=== PATIENT | female | born 1955 | race Caucasian/White ===

== ENCOUNTER 2023-06-06 07:30 | Day surgery (SDC) | payer OTHER, SELFPAY ==
--- NOTE | 2023-06-06 | PATH_ITS ---
[facility] Accession Number: [id number] No. of containers..01 Tissue . 01 Material submitted: . colon - RANDOM COLON . 01 Diagnosis: Random Colon, Biopsy: Colonic mucosa with no diagnostic abnormality. Negative for active, chronic, and microscopic colitis. Negative for dysplasia and malignancy. . V 06/11/2023 1526 Local . 01 Electronically signed: . Sandro Parry MD, PhD, Pathologist NPI- [id number] . 01 Gross description: . RANDOM COLON: Received in formalin are multiple fragment(s) of dickson, soft tissue measuring 0.1 x 0.1 x 0.1 cm to 0.4 x 0.2 x 0.2 cm submitted entirely in 1 cassette(s) /LEANNA 06/07/[id number] Local . 01 Pathologist provided ICD-10: R19.4, Z86.010 . 01 CPT . 195239 Specimen Comment: A courtesy copy of this report has been sent to [phone] Performed at: 01 [facility] [address] [place] [address], [place], [place] [id number] MD Dhruv Contreras MD Phone: [phone]
[2023-06-06 08:45] VITALS: BP 128/86; PULSE 87; RESP 16; TEMP 36.7; O2SAT 96
--- NOTE | 2023-06-06 08:47 | PM.HP.1 ---
History of Present Illness History of Present Illness Date Patient Seen: 06/06/23 Chief complaint: Dx Colonoscopy Narrative: History of colon polyps [facility] Medical History (Updated 06/06/23 @ 08:30 by Onelia Zhou, RN) Breast CA IBS (irritable bowel syndrome) Surgical History (Updated 06/06/23 @ 08:31 by Onelia Zhou RN) History of pubovaginal sling (~1995) H/O bilateral mastectomy (~1999) Social History Smoking Status: Never smoker alcohol intake: current Meds Home Medications and Allergies Home Medications Medication Instructions Recorded Confirmed Type calcium carbonate 200 mg calcium 200 mg PO DAILY 06/06/23 06/06/23 History (500 mg) chewable tablet (Tums) cholecalciferol (vitamin D3) 25 25 mcg PO DAILY 06/06/23 06/06/23 History mcg (1,000 unit) capsule (Vitamin D3) doxylamine succinate 5 mg chewable 5 mg PO DAILY 06/06/23 06/06/23 History tablet ibuprofen 800 mg tablet 800 mg PO TID PRN Pain, Moderate 06/06/23 06/06/23 History zolpidem 5 mg tablet 2.5 mg PO BEDTIME PRN Insomnia 06/06/23 06/06/23 History Allergies Allergy/AdvReac Type Severity Reaction Status Date / Time Iodinated Contrast Media Allergy Intermediate Hives Verified 06/06/23 08:20 iodine Allergy Intermediate Hives Verified 06/06/23 08:20 Exam Narrative Exam Narrative: Oropharynx free of lesions Chest clear to auscultation percussion Cardiac exam reveals no S3 or murmur Assessment & Plan Assessment & Plan narrative: History of colon polyps need for follow-up colonoscopy. Risks, benefits, alternatives have been explained. She has been having some stools that are predominantly diarrheal. If no colitis seen random biopsies will be taken to rule out microscopic colitis.
[2023-06-06] MEDS: LACTATED RINGERS 1,000 ML 42 ML IV (08:55)
--- NOTE | 2023-06-06 09:16 | PM.OP.COLON ---
Operative Date/Time/Diagnoses Date of procedure: 06/06/23 Pre-op diagnosis: See indication and findings Procedure & Clinicians Study performed: Colonoscopy Indications: History of colon polyps. Also history of loose stools Surgeon: Venancio Steen Procedure Notes Procedure in detail: After informed consent was obtained the patient was placed in left lateral decubitus position. The video colonoscope was introduced in the rectum slowly advanced cecum. Preparation was good. On slow withdrawal mucosa was carefully examined. The scope was removed. The patient tolerated procedure well. Blood loss none Complications none Sedation mac Findings 1. Normal colonoscopy to cecum other than rare scattered diverticulosis in the sigmoid colon 2. Random biopsies taken to rule out microscopic colitis 3. Otherwise negative colonoscopy to cecum Candelaria should have follow-up colonoscopy in 7 years.
[2023-06-06 09:45] VITALS: BP 112/73; PULSE 85; RESP 15; TEMP 37; O2SAT 97
[2023-06-06 09:50] VITALS: BP 118/76; PULSE 74; RESP 14; TEMP 36.9; O2SAT 96
[2023-06-06 09:54] VITALS: BP 115/75; PULSE 71; RESP 15; O2SAT 98
== END 2023-06-06 10:08 | disposition home or self-care (01) ==
PROVIDERS: PCP Internal Medicine; Referring Provider Internal Medicine Gastroenterology; Visit Provider Internal Medicine Gastroenterology
PROC: 0DJD8ZZ Inspection of Lower Intestinal Tract, Via Natural or Artificial Opening Endoscopic (ICD-10-PCS; CPT 45378; principal; 2023-06-06 09:00)
DX: Z12.11 Encounter for screening for malignant neoplasm of colon (principal); K57.30 Diverticulosis of large intestine without perforation or abscess without bleeding; Z86.010 Personal history of colon polyps
CPT/HCPCS: 45380; J3010

== ENCOUNTER → 2023-08-10 08:47 | Outpatient (CLI) | payer MEDICARE, SELFPAY ==
--- NOTE | 2023-08-10 08:51 | DI.RAD.S_ITS ---
PROCEDURE: XR CHEST 2V INDICATIONS: SHORTNESS OF BREATH TECHNIQUE: 2 views of the chest were acquired. COMPARISON: None. FINDINGS: Surgical changes and devices: Left axillary clips. Lungs and pleura: Lungs are clear. No pleural effusions or pneumothorax. Mediastinum: Mediastinal contours are normal. Heart size is normal. Bones and chest wall: No suspicious bony abnormalities. Soft tissues appear unremarkable. IMPRESSION: No acute cardiopulmonary abnormality is seen. Dictated by: Grupo Rinaldi M.D. on 08/10/2023 at 12:36 Approved by: Grupo Rinaldi M.D. on 08/10/2023 at 12:37
== END ==
PROVIDERS: PCP Internal Medicine; Referring Provider Physician Assistant; Visit Provider Physician Assistant
DX: R53.83 Other fatigue (principal); R50.9 Fever, unspecified
CPT/HCPCS: 71046

== ENCOUNTER → 2023-08-10 09:56 | Outpatient (CLI) | payer MEDICARE, SELFPAY ==
[2023-08-10 11:29] LABS: Alanine Aminotransferase 51 IU/L (<35); Albumin 3.7 g/dL (3.5-5.0); Albumin Globulin Ratio 1.1 (1.0-2.8); Alkaline Phosphatase 67 U/L (38-126); Aspartate Aminotransferase 41 IU/L (14-36); BUN Creatinine Ratio 17.5 (6-22); Bilirubin Total 0.7 mg/dL (0.2-1.3); Blood Urea Nitrogen 11 mg/dL (7-17); C-Reactive Protein Quant 1.4 mg/dL (<1.0); Calcium 9.3 mg/dL (8.4-10.2); Carbon Dioxide 29 mmol/L (22-32); Chloride 103 mmol/L (98-107); Estimated Glomerular Filt Rate > 60 mL/min (>60); Globulin 3.5 g/dL (1.7-4.1); Glucose 106 mg/dL (80-110); HEMOLYSIS < 15 (0-50); Potassium 4.6 mmol/L (3.4-5.1); Sodium 133 mmol/L (137-145); Total Protein 7.2 g/dL (6.3-8.2)
[2023-08-10 12:07] LABS: Hematocrit 36.6 % (36-46); Hemoglobin 12.4 g/dL (12.0-16.0); Mean Corpuscular Hemoglobin 30.1 PG (26-34); Mean Corpuscular Volume 88.6 fL (80-100); Platelet Count 305 X10^3/uL (150-400); Red Blood Cell Count 4.13 X10^6/uL (4.0-5.2); Red Cell Distribution Width 13.9 % (11.6-14.8); White Blood Cell Count 8.5 X10^3/uL (4.5-11.0)
[2023-08-10 12:09] LABS: Add Manual Diff / Slide Review YES
[2023-08-10 12:10] LABS: Erythrocyte Sedimentation Rate 22 MM/HR (0-20)
[2023-08-10 13:18] LABS: Neutrophils Absolute Manual 3145 /uL (3000-5900); RBC Morphology Normal Morphology; Total Cells Counted 100
== END ==
PROVIDERS: PCP Internal Medicine
DX: R53.83 Other fatigue (principal); R50.9 Fever, unspecified
CPT/HCPCS: 36415; 71046; 80053; 85007; 85025; 85651; 86140